=== PATIENT | female | born 1990 | race Caucasian/White ===

== ENCOUNTER 2016-11-10 22:29 | Emergency (ER) | payer OTHER ==
[~2016-11-10] VITALS: Ht 149.9 cm; Wt 82.1 kg
[2016-11-10 22:29] VITALS: BP 135/85
[~2016-11-10 22:29] MED LIST: HYDR-971 PO; IBUP200T43 PO
[2016-11-10 23:26] LABS: BILIRUBIN,URINE NEG (NEG); CLARITY,URINE CLEAR; COLOR,URINE YELLOW; GLUCOSE,URINE NEG (NEG); NITRITE,URINE NEG (NEG); RBC,URINE OCC /HPF (0-2); UROBILINOGEN,URINE 0.2 mg/dL (0.2 mg/dL); WBC,URINE OCC /HPF (0-4)
[2016-11-10 23:27] LABS: BACTERIA,URINE FEW /HPF (0-FEW); SQUAMOUS EPITHELIAL CELL,UR FEW /LPF
--- NOTE | 2016-11-11 01:29 | ED.ADGEN ---
Past History Past Medical History: No Pertinent History Past Surgical History: No Surgical History Smoking: Less than 1pk/day Alcohol Use: Occasionally Drug Use: None Adult General HPI HPI Patient is a 26-year-old woman, , due to a miscarriage early in to the "many years ago" who presents to the emergency department with a complaint of vaginal spotting, after intrauterine insemination occurred 2 weeks ago. Patient states that she took 5 tests at home that were all negative today, states the first day she was told to check for . She states that her menses did not begin until the 18th. She states that she has been very concerned about possibility of miscarriage all day, and that this evening she began to experience vaginal spotting, when wiping on the toilet tissue. She denies any gush of fluid, any passage of tissue, any clots or heavy bleeding, denies any cramping abdominal or back pain. Denies any nausea, any vomiting. She states she had one beer tonight while attempting to "relax", with a friend. She is tearful in the ED at this time. Denies any other medical problems or medications, denies any injuries, denies any recent intercourse or trauma to the vagina, she states that her semen was from a donor. Patient has a negative hCG urine test in the ED. Review of Systems Review of Systems Constitutional: Denies fever or chills [] Eyes: Denies change in visual acuity, redness, or eye pain [] HENT: Denies nasal congestion or sore throat [] Respiratory: Denies cough or shortness of breath [] Cardiovascular: No additional information not addressed in HPI [] GI: Denies abdominal pain, nausea, vomiting, bloody stools or diarrhea [] : Denies dysuria or hematuria [] vaginal spotting. Musculoskeletal: Denies back pain or joint pain [] Integument: Denies rash or skin lesions [] Neurologic: Denies headache, focal weakness or sensory changes [] Endocrine: Denies polyuria or polydipsia [] Allergies Allergies Allergies Coded Allergies Type Severity Reaction Last Updated Verified No Known Drug Allergies 05/04/13 No Physical Exam Physical Exam Constitutional: Well developed, well nourished, no acute distress, non-toxic appearance. [] HENT: Normocephalic, atraumatic, bilateral external ears normal, oropharynx moist, no oral exudates, nose normal. [] Eyes: PERRLA, EOMI, conjunctiva normal, no discharge. [] Neck: Normal range of motion, no tenderness, supple, no stridor. [] Cardiovascular:Heart rate regular rhythm, no murmur, S1, S2, rubs or gallops. [] Lungs & Thorax: Bilateral breath sounds clear to auscultation, no wheezing, rhonchi, rales. No chest or crepitus or tenderness. [] Abdomen: Bowel sounds normal, soft, no tenderness, no masses, no rebound, rigidity, no guarding, no pulsatile masses. [] Skin: Warm, dry, no erythema, no rash. [] Back: No tenderness, no CVA tenderness. [] Extremities: No tenderness, no cyanosis, no clubbing, ROM intact, no edema. Negative Homans sign. [] Neurologic: Alert and oriented X 3, normal motor function, normal sensory function, no focal deficits noted. [] Psychologic: Affect normal, judgement normal, mood normal. [] Current Patient Data Vital Signs Vital Signs Date Time Temp Pulse Resp B/P (MAP) Pulse Ox O2 Delivery O2 Flow Rate FiO2 11/10/16 22:29 98.3 86 18 96 Room Air Lab Results Laboratory Tests Test 11/10/16 22:39 11/10/16 22:49 Urine Collection Type Unknown Urine Color Yellow Urine Clarity Clear Urine pH 6.0 Urine Specific [place] <=1.005 Urine Protein Neg (NEG-TRACE) Urine Glucose (UA) Neg mg/dL (NEG) Urine Ketones (Stick) Neg mg/dL (NEG) Urine Blood Large (NEG) Urine Nitrite Neg (NEG) Urine Bilirubin Neg (NEG) Urine Urobilinogen Dipstick 0.2 mg/dL (0.2 mg/dL) Urine Leukocyte Esterase Neg (NEG) Urine RBC Occ /HPF (0-2) Urine WBC Occ /HPF (0-4) Urine Squamous Epithelial Cells Few /LPF Urine Bacteria Few /HPF (0-FEW) POC Urine HCG, Qualitative hcg negative (Negative) EKG EKG Not indicated. [] Radiology/Procedures Radiology/Procedures Not indicated. [] Course & Med Decision Making Course & Med Decision Making Pertinent Labs and Imaging studies reviewed. (See chart for details) As stated, patient with a negative hCG urine test in the ED. Patient's menses are scheduled to start in roughly 2 days, I did discuss with patient that the negative test here in conjunction with tests at home, indicate that she does not at this point had a that is reproducing hormone, therefore, we have no evidence of a miscarriage, it appears that the insemination may have failed. We did check a urinalysis for infection, which was negative for nitrates, noted have a few white blood cells and few bacteria, no concerning findings identified. Patient reassured that there is nothing that she has done wrong to cause for this to happen, advised that she avoid stress, and alcohol, and continue her vitamins, she is encouraged to contact her provider at [facility] tomorrow morning for additional evaluation and recommendations. Discussed with patient that there is no further evaluation that would be warranted or indicated tonight. She is encouraged to stay hydrated, get plenty of rest, and to return to the ED if any concerning symptoms as discussed develop. Patient voiced understanding and agreement with this plan, was discharged home in stable condition with plan as above. Final Impression Final Impression [] Problems: Dragon Disclaimer Dragon Disclaimer This electronic medical record was generated, in whole or in part, using a voice recognition dictation system. Departure: Impression: Primary Impression: Dysfunctional uterine bleeding Disposition: HOME, SELF-CARE Condition: IMPROVED ROBERTO WICK DO Nov 11, 2016 01:29
== END 2016-11-10 23:57 | disposition home or self-care (01) ==
LOC: ER 22:29
DX: N93.8 Other specified abnormal uterine and vaginal bleeding (principal); F17.200 Nicotine dependence, unspecified, uncomplicated
CPT/HCPCS: 81001; 81025; 99283

== ENCOUNTER 2017-01-10 18:35 | Emergency (ER) | payer OTHER ==
[~2017-01-10] VITALS: Ht 149.9 cm; Wt 82.1 kg
[2017-01-10 18:35] VITALS: BP 118/80
[2017-01-11] MEDS ORDERED: MUPI22OI2 TP (13:27)
[2017-01-11] MEDS ORDERED: AMOX1TAB61 PO (13:27)
== END 2017-01-10 20:00 | disposition home or self-care (01) ==
LOC: ER 18:35
DX: S69.91XA Unspecified injury of right wrist, hand and finger(s), initial encounter (principal); Z53.21 Procedure and treatment not carried out due to patient leaving prior to being seen by health care provider; X58.XXXA Exposure to other specified factors, initial encounter; Y93.89 Activity, other specified; Y99.8 Other external cause status; Y92.89 Other specified places as the place of occurrence of the external cause

== ENCOUNTER 2017-01-11 12:29 | Emergency (ER) | payer OTHER ==
[~2017-01-11] VITALS: Ht 149.9 cm; Wt 81.6 kg
[2017-01-11] MEDS ORDERED: AMOX1TAB61 PO (13:27)
[2017-01-11] MEDS ORDERED: MUPI22OI2 TP (13:27)
--- NOTE | 2017-01-11 13:27 | PHYS DOC ---
Past History Past Medical History: No Pertinent History Past Surgical History: No Surgical History Smoking: Less than 1pk/day Alcohol Use: Occasionally Drug Use: None Adult General Chief Complaint Chief Complaint: FINGER INJURY [facility] HPI Patient is a 26 year old F who presents with finger injury yesterday. She states that yesterday her right index finger nail bent backwards. This morning she noticed some drainage from underneath her nail. She also describes mild-to- moderate pain but does not radiate. She has no other associated symptoms. She has no other exacerbating or alleviating factors. Review of Systems Review of Systems Constitutional: Denies fever or chills [] Eyes: Denies change in visual acuity, redness, or eye pain [] HENT: Denies nasal congestion or sore throat [] Respiratory: Denies cough or shortness of breath [] Cardiovascular: No additional information not addressed in HPI [] GI: Denies abdominal pain, nausea, vomiting, bloody stools or diarrhea [] : Denies dysuria or hematuria [] Musculoskeletal: Denies back pain or joint pain [] Integument: Denies rash or skin lesions [] Neurologic: Denies headache, focal weakness or sensory changes [] Endocrine: Denies polyuria or polydipsia [] Family History Family History Noncontributory Current Medications Current Medications Medications reviewed Allergies Allergies Allergies Coded Allergies Type Severity Reaction Last Updated Verified No Known Drug Allergies 05/04/13 No Physical Exam Physical Exam Constitutional: Well developed, well nourished, no acute distress, non-toxic appearance. [] HENT: Normocephalic, atraumatic, Eyes: EOMI, conjunctiva normal, no discharge. [] Neck: Normal range of motion Cardiovascular:Heart rate regular rhythm, Lungs & Thorax: Bilateral breath sounds clear to auscultation [] Skin: Warm, dry, no erythema, no rash. [] Extremities: no cyanosis, no clubbing, ROM intact, no edema. [] Right second finger nail partial avulsion however her acrylic nail is holding the avulsion in place. Minimal serous drainage noted underneath the nail. Neurologic: Alert and oriented X 3, normal motor function, normal sensory function, no focal deficits noted. [] Psychologic: Affect normal, judgement normal, mood normal. [] Current Patient Data Vital Signs Normal vital signs. Please refer to nursing a condition for specifics EKG EKG [] Radiology/Procedures Radiology/Procedures [] Course & Med Decision Making Course & Med Decision Making Pertinent Labs and Imaging studies reviewed. (See chart for details) The nail was unable to be removed. Despite having no signs of infection she was given a topical antibiotic to prevent infection as well as an oral antibiotic to start only if she develops systemic signs of infection or worsening local infection. These precautions are taken as the nail was not able to be removed and is at high risk for trapping debris as well as bacteria. She was strongly advised to keep this wound clean with soap and water regularly and covered regularly. Dragon Disclaimer Dragon Disclaimer This chart was dictated in whole or in part using Voice Recognition software in a busy, high-work load, and often noisy Emergency Department environment. It may contain unintended and wholly unrecognized errors or omissions. Departure Departure: Impression: Primary Impression: Finger injury Disposition: 01 HOME, SELF-CARE Condition: STABLE Referrals: DERIAN ARCINIEGA DO, M[facility] (PCP) Patient Instructions: Fingertip Injuries and Amputations Additional Instructions: Barb was seen for finger injury. No emergency medical condition was found on history or physical exam. She was found to have a partially avulsed fingernail which was unable to be removed due to her acrylic nails. She was given a topical antibiotic to prevent infections as well as a prescription for an oral antibiotic to start only if her symptoms worsen or she develops flulike symptoms. She is advised to follow-up with her primary care doctor in the next 3 -5 days for further management. Scripts Mupirocin (MUPIROCIN) 22 Gm Oint...g. 1 CARRIE TP TID for 7 Days, #22 GM Prov: YARI MELENDEZ MD 01/11/17 Amoxicillin/Potassium Clav (AUGMENTIN 875-125 TABLET) 1 Each Tablet 1 TAB PO BID for 14 Days, #28 TAB Prov: YARI MELENDEZ MD 01/11/17 Problem Qualifiers Primary Impression: Finger injury Encounter type: initial encounter Laterality: right Qualified Codes: S69.91XA - Unspecified injury of right wrist, hand and finger(s), initial encounter YARI MELENDEZ MD Jan 11, 2017 13:27
[2017-01-11 13:35] VITALS: BP 114/71
== END 2017-01-11 13:35 | disposition home or self-care (01) ==
LOC: ER 12:29
DX: S69.91XA Unspecified injury of right wrist, hand and finger(s), initial encounter (principal); F17.200 Nicotine dependence, unspecified, uncomplicated; X58.XXXA Exposure to other specified factors, initial encounter; Y93.89 Activity, other specified; Y92.89 Other specified places as the place of occurrence of the external cause; Y99.8 Other external cause status
CPT/HCPCS: 99283